=== PATIENT | male | born 1985 | race Caucasian/White ===

== ENCOUNTER 2022-08-01 14:46 | Outpatient (REF) | payer BC, SELFPAY ==
[2022-08-03 14:14] LABS: COVID-19 RT-PCR UVMMC Result Negative (Negative)
== END 2022-08-01 14:47 | disposition home or self-care (01) ==
LOC: LBN 14:46
PROVIDERS: Visit Provider Nurse Practitioner Family
DX: Z20.822 Contact with and (suspected) exposure to COVID-19 (principal); R06.02 Shortness of breath
CPT/HCPCS: U0003